=== PATIENT | female | born 1955 | race Caucasian/White ===

== ENCOUNTER 2020-04-26 12:39 | Day surgery (SDC) | payer OTHER ==
[~2020-04-26 12:39] MED LIST: CALCIUM600 MG PO; KRILL OIL 1,001 EAC1 PO; MAGNESIUM100 MG PO; SUPER B COMPLE150 MG PO; VITAMIN A8000 UNIT PO; VITAMIN D2000 UNIT PO; VITAMIN E1000 UNI3 PO
--- NOTE | 2020-04-26 15:59 | NUR ---
04/26/20 Zaynab Horn- PT ARRIVES TO PACU AWAKE AND ANSWERING QUESTIONS. PT REPORTS CRAMPING PAIN IN HER ABD THAT SHE RATES A 3/10. PT ENCOURAGED TO PASS FLATUS. PT DENIES NAUSEA. RESP EVEN AND UNLABORED. OXYGEN SAT HIGH 90'S TO 100% ON 2L VIA NC.
--- NOTE | 2020-04-28 10:16 | OR ---
[facility] [address] [place], [place] [address] Signed DATE OF OPERATION: 04/26/2020 SURGEON: Elfego Holcomb MD PREOPERATIVE DIAGNOSES: 1. Family history of colon cancer, colon surveillance. 2. Severe gastroesophageal reflux symptoms. POSTOPERATIVE DIAGNOSES: 1. Normal colon with visualization but not intubation of cecum. 2. Hiatal hernia with chronic esophagitis without Alan's esophagus. PROCEDURE: 1. Total colonoscopy. 2. Upper endoscopy with biopsy. ANESTHESIA: Intravenous sedation, fentanyl 200 mcg and Versed 7 mg. INDICATION: This 64-year-old white woman is a patient of Dr. Ángel Hidalgo, who last underwent colonoscopy in 2005, which was normal. She did have "adenomatous change" of a random rectal biopsy. She has had no blood per rectum, diarrhea, or constipation. She does have some vague abdominal pain and certainly has some reflux-type symptoms including pain. She has been recently started on PPI medication, which has been helpful to her. She is admitted at this time to undergo upper endoscopy and colonoscopy to better characterize the problem. She understands the risks of bleeding, infection, and perforation and wished to proceed. FINDINGS: Upper endoscopy showed a hiatal hernia and chronic esophagitis, but no Alan's epithelium and no suspicious lesion. CLOtest was negative. On colonoscopy, the prep was quite good. Colonoscopy was challenging due to tortuosity of the colon. The cecum was visualized but not fully intubated. The remaining colon was normal. DESCRIPTION OF PROCEDURE: The patient was brought to the endoscopy suite and placed in the lateral decubitus Electronically Signed By: ELFEGO HOLCOMB MD 04/28/20 [facility] PATIENT NAME: DAVE FRANCIS OPERATIVE REPORT DATE OF : 59 REPORT #: [id number] PHYSICIAN: ELFEGO HOLCOMB MD PCP: IVETT HIDALGO MD REPORT IS CONFIDENTIAL AND NOT TO BE RELEASED WITHOUT AUTHORIZATION [facility] [address] [place], [place] [address] Signed position, given topical lidocaine spray anesthesia. She was placed in a position of maximal comfort for her mindful of chronic pain problems with her joints and so. She was given intravenous sedation to the point of slurred speech and nystagmus with full cardiopulmonary monitoring following lidocaine hypopharyngeal spray anesthesia. A bite block was placed. An Olympus video upper endoscope was passed in the hypopharynx. The vocal cords appeared normal. Scope was advanced to the esophagus and was normal except in the distal portion where there was mild chronic inflammation, but no sign of Alan's epithelium or stricture proper. The scope was passed to the stomach, which was insufflated with air. Rugal folds were normal. The body and antrum of stomach reasonably normal. Pylorus normal. Scope was passed through into the duodenum, which was normal. Biopsies were taken there to assess for celiac disease. The scope was withdrawn and biopsies taken of the antrum for both LESLY and pathologic testing. Retroflexed view was undertaken showing a hiatal hernia. The scope was withdrawn after straightening and biopsies were taken of the distal esophagus and midesophagus as well. The scope was further withdrawn and removed. The patient was made ready for colonoscopy. Additional sedation was given and digital rectal examination performed. An Olympus video colonoscope was passed in the rectum and manipulated throughout the colon. Passage through the sigmoid and left colon was initially challenging due to the patient's discomfort requiring additional sedation. The scope was passed beyond this ultimately to the splenic flexure, transverse, hepatic flexure and right colon. Further efforts to intubate the cecum proper were unsuccessful despite efforts to do so visualization was obtained. There was no abnormality. The scope was then withdrawn. Examination throughout showed no sign of polyps, diverticular formation, colitis, or cancer. The scope was removed and the patient was taken to the recovery room in good condition. CONCLUDING DIAGNOSES: Dominant finding of hiatal hernia with clinical gastroesophageal reflux. Treatment with Prilosec or other PPI medication for the time being would be appropriate. As regards to the colon, no findings were seen. I would recommend repeat colonoscopy in 5 years, sooner if symptoms should develop. We will see her back in the office in 4 to 6 weeks and review her progress with PPI medication. Elfego Holcomb MD /KATERINEL /[id number] Electronically Signed By: ELFEGO HOLCOMB MD 04/28/20 1016 PATIENT NAME: DAVE FRANCIS OPERATIVE REPORT DATE OF : 59 REPORT #: [id number] PHYSICIAN: ELFEGO HOLCOMB MD PCP: IVETT HIDALGO MD REPORT IS CONFIDENTIAL AND NOT TO BE RELEASED WITHOUT AUTHORIZATION [address] [address] Signed cc: Ángel Hidalgo DO Copies: Ángel Hidalgo DO ~ Electronically Signed By: ELFEGO HOLCOMB MD 04/28/20 1016 PATIENT NAME: DAVE FRANCIS OPERATIVE REPORT DATE OF : 59 REPORT #: [id number] PHYSICIAN: ELFEGO HOLOCMB MD PCP: IVETT HIDALGO MD REPORT IS CONFIDENTIAL AND NOT TO BE RELEASED WITHOUT AUTHORIZATION
== END 2020-04-26 16:45 | disposition home or self-care (01) ==
LOC: OPS 12:39 → DS 12:39 → OPS 14:00
PROVIDERS: ATTEND Surgery
PROC: 0DB98ZX Excision of Duodenum, Via Natural or Artificial Opening Endoscopic, Diagnostic (ICD-10-PCS; principal; 2020-04-26 14:00)
PROC: 0DJD8ZZ Inspection of Lower Intestinal Tract, Via Natural or Artificial Opening Endoscopic (ICD-10-PCS; 2020-04-26 14:00)
DX: Z12.11 Encounter for screening for malignant neoplasm of colon (principal); K21.00 Gastro-esophageal reflux disease with esophagitis, without bleeding; K44.9 Diaphragmatic hernia without obstruction or gangrene; Z88.5 Allergy status to narcotic agent; Z91.040 Latex allergy status; Z88.8 Allergy status to other drugs, medicaments and biological substances; Z80.0 Family history of malignant neoplasm of digestive organs
CPT/HCPCS: 99153; G0500; J2250; J3010; J7121

== ENCOUNTER 2020-11-13 15:29 | Emergency (ER) | payer OTHER ==
[~2020-11-13] VITALS: Ht 167.6 cm; Wt 63.5 kg
[2020-11-13] MEDS ORDERED: PANTOPRAZOLE SO40 MG PO (15:57)
[2020-11-13] MEDS ORDERED: ONDANSETRON ODT4 MG PO (18:11)
== END 2020-11-13 18:57 | disposition home or self-care (01) ==
LOC: ED 15:29
DX: U07.1 COVID-19 (principal); J45.909 Unspecified asthma, uncomplicated; Z91.048 Other nonmedicinal substance allergy status; Z88.8 Allergy status to other drugs, medicaments and biological substances; Z91.040 Latex allergy status; Z88.5 Allergy status to narcotic agent; Z79.899 Other long term (current) drug therapy
CPT/HCPCS: 71045; 80053; 83690; 83735; 85025; 94640; 96374; 96375; 99283-25; C9803; J1885; J2405; J7030; U0003